=== PATIENT | female | born 1990 | race Hispanic/Latino ===

== ENCOUNTER 2017-06-25 18:17 | Emergency (ER) | payer BC ==
[2017-06-25 18:25] VITALS: BP 111/97; PULSE 75; RESP 20; TEMP 98; O2SAT 100
--- NOTE | 2017-06-25 19:06 | ED PDOC ---
Lower Extremity Pain/Injury Time Seen by Provider: 06/25/17 18:35 Chief Complaint (Nursing): Lower Extremity Problem/Injury Chief Complaint (Provider): left ankle pain History Per: Patient Additional Complaint(s): 27-year-old female presents to emergency Department with left ankle pain status post twisting injury at the gym earlier today. Patient able to walk and bear weight but has pain when doing so. She denies numbness or tingling to the affected area. No medicine taken for pain relief prior to arrival. She rates current pain is a 5/10 and denies any numbness or tingling to affected area. Past Medical History Reviewed: Historical Data, Nursing Documentation, Vital Signs Vital Signs: Last Vital Signs Temp 98 F 06/25/17 18:21 Pulse 75 06/25/17 18:21 Resp 20 06/25/17 18:21 BP 111/97 H 06/25/17 18:21 Pulse Ox 100 06/25/17 18:21 - Medical History PMH: No Chronic Diseases - Surgical History Surgical History: No Surg Hx - Family History Family History: States: No Known Family Hx - Living Arrangements Living Arrangements: With Family - Social History Current smoker - smoking cessation education provided: No Alcohol: Social Drugs: Denies - Allergies Allergies/Adverse Reactions: Allergies Allergy/AdvReac Type Severity Reaction Status Date / Time No Known Allergies Allergy Verified 06/25/17 18:20 Wells Criteria for PE - Wells Criteria for Pulmonary Embolism Clinical Signs and Symptoms of DVT: No P.E is #1 Diagnosis, or Equally Likely: No Heart Rate >100: No Immobilization at least 3 days;Surgery previous 4 weeks: No Previous, objectively diagnosed PE or DVT: No Hemoptysis: No Malignancy w/treatment within 6 months, or palliative: No Total Score: 0 Review of Systems ROS Statement: Except As Marked, All Systems Reviewed And Found Negative Musculoskeletal: Positive for: Other (left ankle injury) Physical Exam - Reviewed Nursing Documentation Reviewed: Yes Vital Signs Reviewed: Yes - Physical Exam Appears: Positive for: Well, Non-toxic, No Acute Distress Skin: Negative for: Rash Eye Exam: Positive for: Normal appearance Extremity: Positive for: Other (Swelling and tenderness left lateral malleolus with full range of motion, nontender left foot, normal distal sensation) Neurologic/Psych: Positive for: Alert, Oriented - ECG O2 Sat by Pulse Oximetry: 100 Pulse Ox Interpretation: Normal - Other Rad Left ankle x-ray X-Ray: Interpreted by Me, Viewed By Me X-Ray Interpretation: no fx, no dis Medical Decision Making Medical Decision Makin27 year old with left ankle injury Plan: Pain meds declined X-ray left ankle X-ray negative for fracture or dislocation. Crutches given See procedure note Advised NSAID's for pain as needed. Podiatry referral provided. Procedures - Splinting Location: left ankle Pre-Made Type: aircast (shawna wrap and aircast) Pre-Proc Neuro Vasc Exam: normal Post-Proc Neuro Vasc Exam: normal Disposition - Clinical Impression Clinical Impression: Left ankle sprain - Patient ED Disposition Is Patient to be Admitted: No Counseled Patient/Family Regarding: Studies Performed, Diagnosis, Need For Followup - Disposition Referrals: Marah Sparrow DPM [Staff Provider] - Podiatry Clinic [Outside] Disposition: Routine/Home Disposition Time: 20:10 Condition: STABLE Additional Instructions: Ice, rest and elevate affected area. Over the counter advil or tylenol for pain as needed. Follow up with software quality specialist for any persistent symptoms. Instructions: Ankle Sprain (ED), Ankle Stirrup Splint (ED), Crutch Instructions (ED) Forms: [employer] ([place]ian)
--- NOTE | 2017-06-26 08:36 | RAD ---
PROCEDURE: Left Ankle Radiographs. HISTORY: trauma COMPARISON: None FINDINGS: BONES: Normal. No fracture. JOINTS: Normal. No osteoarthritis. Ankle mortise maintained. Talar dome intact SOFT TISSUES: Soft tissue swelling anteriorly and laterally without distal tibial, fibular or talar abnormality. OTHER FINDINGS: None. IMPRESSION: Soft tissue swelling without acute articular or osseous abnormality. Concordant results with the preliminary interpretation rendered by the emergency department physician procedure.
== END 2017-06-25 21:58 | disposition home or self-care (01) ==
LOC: H.ER 18:17
DX: S93.402A Sprain of unspecified ligament of left ankle, initial encounter (principal); X50.9XXA Other and unspecified overexertion or strenuous movements or postures, initial encounter; Y92.89 Other specified places as the place of occurrence of the external cause